=== PATIENT | female | born 1980 | race African-American/Black ===

== ENCOUNTER 2019-05-03 00:31 | Emergency (ER) | payer BC, OTHER ==
[2019-05-03 01:01] VITALS: TEMP 97.9; BMI 36.6
[2019-05-03] MEDS ORDERED: SODIUM CHLORIDE 0.9% 500 ML INFUS.BAG IV ONE (03:18)
[2019-05-03] MEDS ORDERED: ACETAMINOPHEN 1000 MG/100 ML VIAL (NON FORMULARY) IVPB ONE (03:18)
[2019-05-03] MEDS ORDERED: IBUPROFEN 600 MG TABLET (FP) PO ONE ×2 (03:24→03:33)
--- NOTE | 2019-05-03 03:30 | PDOC ---
History of Present Illness - General Chief Complaint: Headache Stated Complaint: HEADACHE Time Seen by Provider: 05/03/19 03:17 - History of Present Illness Initial Comments: 05/03/19 04:09 38f with pmh of migraines presents to the ED with frontal headache and tingling down her right arm and hand and along her spine and paraspinal area since this afternoon Took 2x Tylenol this afternoon which gave her some relief but the headache eventually came back. Patient denies nausea/vomiting/diarrhea. Past History - Past Medical History Allergies/Adverse Reactions: Allergies Allergy/AdvReac Type Severity Reaction Status Date / Time No Known Allergies Allergy Verified 05/03/19 00:53 Home Medications: Ambulatory Orders NK [No Known Home Medication] 05/03/19 - Suicide/Smoking/Psychosocial Hx Smoking History: Never smoked Have you smoked in the past 12 months: No Information on smoking cessation initiated: No Hx Alcohol Use: No Drug/Substance Use Hx: No Review of Systems - Review of Systems Able to Perform ROS?: Yes Is the patient limited Slovenian proficient: No Constitutional: No: Symptoms Reported HEENTM: No: Symptoms Reported Respiratory: No: Symptoms reported Cardiac (ROS): No: Symptoms Reported ABD/GI: No: Symptoms Reported : No: Symptoms Reported Musculoskeletal: No: Symptoms Reported Integumentary: No: Symptoms Reported Neurological: Yes: See HPI All Other Systems: Reviewed and Negative *Physical Exam - Vital Signs Last Vital Signs Temp Pulse Resp BP Pulse Ox 97.9 F 66 18 105/62 97 05/03/19 00:40 05/03/19 00:40 05/03/19 00:40 05/03/19 00:40 05/03/19 00:40 - Physical Exam General Appearance: Yes: Nourished, Appropriately Dressed. No: Apparent Distress HEENT: positive: GABBY, Normal ENT Inspection Respiratory/Chest: positive: Lungs Clear, Normal Breath Sounds. negative: Chest Tender, Respiratory Distress Cardiovascular: positive: Regular Rhythm, Regular Rate, S1, S2 Gastrointestinal/Abdominal: positive: Flat, Soft. negative: Normal Bowel Sounds , Tender Extremity: positive: Normal Capillary Refill, Normal Inspection, Normal Range of Motion Integumentary: positive: Normal Color, Dry, Warm Neurologic: positive: Fully Oriented, Alert, Normal Mood/Affect, Normal Response , Motor Strength 5/5. negative: Numbness Medical Decision Making - Medical Decision Making 05/03/19 05:22 38F with headache and back pain radiating to right arm. Patient asking to Motrin. Declines any bloodwork or urine test. Says she's on her period so already knowns she's not . Refusing imaging as well, will get imaging outpatient, asking for Neurology referral and discharge after her Motrin as well as work note. *DC/Admit/Observation/Transfer Diagnosis at time of Disposition: Tension headache, Cervical radiculopathy - Discharge Dispostion Disposition: HOME Condition at time of disposition: Improved Decision to Admit order: No - Referrals Referrals: Flavio Erickson MD [Staff Physician] - - Patient Instructions Printed Discharge Instructions: Tension Headache Additional Instructions: Follow up with the neurologist Dr. Erickson within the week. Come back to the emergency department for any new, worsening or concerning symptoms. - Post Discharge Activity Forms/Work/School Notes: Back to Work
[2019-05-03 04:26] VITALS: BP 110/65; PULSE 65
== END 2019-05-03 03:40 | disposition home or self-care (01) ==
LOC: JER 00:31
PROC: 3E033NZ Introduction of Analgesics, Hypnotics, Sedatives into Peripheral Vein, Percutaneous Approach (ICD-10-PCS; principal; 2019-05-03)
DX: M54.12 Radiculopathy, cervical region (principal); G44.209 Tension-type headache, unspecified, not intractable
CPT/HCPCS: 96374; 99282-25

== ENCOUNTER 2019-08-09 22:03 | Emergency (ER) | payer BC, OTHER ==
[2019-08-09 22:11] VITALS: TEMP 98; BMI 35.4
--- NOTE | 2019-08-09 23:20 | PDOC ---
Attending Attestation - Resident Resident Name: Yariel Kohler - ED Attending Attestation I have performed the following: I have examined & evaluated the patient, The case was reviewed & discussed with the resident, I agree w/resident's findings & plan - HPI HPI: 08/10/19 05:59 Pt has left finger numbness and thumb numbness; no involvement of the palm or dosrum of hand. No neck injury No muscle spasm, No typing or repetetive stress injury. Pt has no carpal tunnel syndrome. No rashes.No fever Never had this before. - Physicial Exam PE: 08/10/19 06:00 Agree with resident exam. Normal pulses in the wrist Normal strength in the lumbricals, fingers, wrist and arm on left Pt has no swelling and no rashes. Normal capillary refill - Medical Decision Making 08/10/19 00:31 Pt has a peripheral neuropathy; tinling in her fingers and thumbs of the left hand only. 08/10/19 06:01 Pt will follow with neuro as an outpatient.
[2019-08-09] MEDS ORDERED: IBUPROFEN 400 MG TABLET (FP) PO ONE (23:34)
[2019-08-10] MEDS ORDERED: IBUPROFEN 400 MG TABLET (FP) PO ONE (00:11)
--- NOTE | 2019-08-10 00:21 | PDOC ---
History of Present Illness <Isabel Wynne - Last Filed: 08/10/19 00:32> - General History Source: Patient, Significant Other (Boyfriend at bedside.), Old Records Exam Limitations: No Limitations - History of Present Illness Initial Comments: HPI: 38 y/o female presenting to [facility] complaining of one week of persistent left hand numbness. Started spontaneously at work. Denies pain or weakness. No trauma to the hand, arm, or the shoulder. Denies headaches, diplopia, or electric pains in neck. Denies fevers or chills. Has not attempted relief with any OTC medications. Appointment to establish care with a neurologist scheduled for this coming Sunday. 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 - Denies repetitive typing or other wrist movements Medical Hx: - Pt denies past medical history Surgical Hx: - x2 Review of Systems: In addition to that documented in the HPI above, the additional ROS was obtained : Constitutional: Denies fevers or chills Head: Denies vision changes ENMT: Denies sore throat CV: Denies chest pain Resp: Denies SOB GI: Denies vomiting or diarrhea : Denies painful urination MSK: Denies recent trauma Skin: Denies new rashes Neuro: Per HPI Endocrine: Denies polyuria Heme: Denies bleeding or bruising Physical Examination: Constitutional: Well-developed, well-nourished adult female in no acute distress or obvious discomfort. Obese body habitus. Found sitting upright in hallway chair. Answered all questions appropriately and completely. Speech was non-labored, non-pressured. Head: Normocephalic. No obvious external signs of trauma. Cardiovascular / Chest: Regular rate and regular rhythm. No murmur, rubs, clicks , or gallops. Peripheral pulses: radial pulses full. Respiratory: Breathing unlabored. Equal chest rise and fall. Clear to auscultation bilaterally. No stridor, no wheezing, no rhonchi. Neuro: Alert and oriented x4. Moving all four extremities spontaneously. Altered sensation to outer edges of left palm and fingers, as well as dorsum of hand. 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 MSK: Active and passive ROM of left hand digits, wrist, elbow, and shoulder unremarkable and nonpainful. No tenderness to left axilla or left shoulder. Skin: Warm, dry, and intact. No bruising, rashes, or other lesions. Psych: Affect: appropriate. Mood: normal. MDM: *Reviewed vital signs, nursing notes, and prior visit documentation (if available). 38 y/o female presenting with one week of left hand numbness. Area of complaint does not follow normal dermatomal distribution. Physical exam as described above. Motor exam unremarkable. Low suspicion for carpal tunnel or Guyons tunnel syndromes, MS, or traumatic injury. Possible atypical migraine symptom, though duration makes this seem less likely. Low suspicion for emergent condition. Will encourage pt to continue with previously scheduled neurology clinic f/u this week. Ordered Motrin for possibly symptom relief. ED Attending provided discharge instructions and return precautions. Yariel Kohler M.D., PGY2 Emergency Medicine Resident <Yariel Kohler - Last Filed: 08/10/19 06:51> - General Chief Complaint: Pain, Acute Stated Complaint: LT HAND NUMB Time Seen by Provider: 08/09/19 23:16 Past History <Isabel Wynne - Last Filed: 08/10/19 00:32> - Past Medical History COPD: No - Psycho Social/Smoking Cessation Hx Smoking History: Never smoked Have you smoked in the past 12 months: No Hx Alcohol Use: No Drug/Substance Use Hx: No <Yariel Kohler - Last Filed: 08/10/19 06:51> - Past Medical History Allergies/Adverse Reactions: Allergies Allergy/AdvReac Type Severity Reaction Status Date / Time No Known Allergies Allergy Verified 05/03/19 00:53 Home Medications: Ambulatory Orders NK [No Known Home Medication] 05/03/19 *Physical Exam - Vital Signs Last Vital Signs Temp Pulse Resp BP Pulse Ox 98 F 86 19 106/71 100 08/09/19 22:09 08/09/19 22:09 08/09/19 22:09 08/09/19 22:09 08/09/19 22:09 <Isabel Wynne - Last Filed: 08/10/19 00:32> - Vital Signs Last Vital Signs Temp Pulse Resp BP Pulse Ox 98 F 86 19 106/71 100 08/09/19 22:09 08/09/19 22:09 08/09/19 22:09 08/09/19 22:09 08/09/19 22:09 <Yariel Kohler - Last Filed: 08/10/19 06:51> ED Treatment Course - Medications Given in the ED: ED Medications Discontinued Medications Generic Name Dose Route Start Last Admin Trade Name Fransisco EUGENE Reason Stop Dose Admin Ibuprofen 400 mg 08/09/19 23:34 08/10/19 00:29 Motrin - PO 08/09/19 23:35 400 mg ONCE ONE Administration <Isabel Wynne - Last Filed: 08/10/19 00:32> Discharge - Discharge Information Problems reviewed: Yes <Isabel Wynne - Last Filed: 08/10/19 00:32> <Yariel Kohler - Last Filed: 08/10/19 06:51> - Discharge Information Clinical Impression/Diagnosis: Peripheral neuropathy Condition: Stable Disposition: HOME - Patient Discharge Instructions Patient Printed Discharge Instructions: Neuropathic Pain, DI for Peripheral Neuropathy - Post Discharge Activity Work/Back to School Note: Back to Work
[2019-08-10 00:39] VITALS: BP 113/76; PULSE 82
== END 2019-08-10 00:35 | disposition home or self-care (01) ==
LOC: JER 22:03
DX: G62.89 Other specified polyneuropathies (principal)
CPT/HCPCS: 99282-25